=== PATIENT | female | born 1990 | race Caucasian/White ===

== ENCOUNTER 2016-04-28 11:07 | Inpatient (IN) | payer BC ==
[~2016-04-28] VITALS: Ht 172.7 cm; Wt 102.3 kg
[~2016-04-28 11:07] MED LIST: BIRTH CONTROL PILLS; IMODIUM 2MG CAPS2 MG PO
[2016-06-12] VITALS (11 sets, daily range): BP systolic 122–158; BP diastolic 66–87; PULSE 71–100; TEMP 98–98.9
[2016-06-12] MEDS ORDERED: PRILOSEC10 MG PO (19:27)
[2016-06-12] MEDS ORDERED: PRENATAL1 TA7 PO (19:28)
[2016-06-12] MEDS ORDERED: CLARITIN 1010 MG/TAB PO (19:28)
[2016-06-12 20:14] LABS: BASO % 0.3 % (0.0-2.0); EOS # 0.2 (0.0-0.7); GRAN # 6.3 (1.4-6.5); GRAN % 65.6 % (42.2-75.2); LYMPH # 2.2 (1.2-3.4); LYMPH % 23.3 % (20.0-51.0); MEAN CELL VOLUME 86 fl (80.0-100.0); MEAN CORPUSCULAR HGB CONC 34 g/dl (33.0-37.0); MEAN PLATELET VOLUME 9.3 fl (7.4-10.4); MONO # 0.8 (0.1-0.6); MONO % 8.3 % (1.7-9.3); PLATELET COUNT 378 K/mm3 (130-400); RED BLOOD COUNT 3.65 M/mm3 (4.10-5.30); REDCELL DISTRIBUTION WIDTH-CV 12.6 % (11.5-14.5); WHITE BLOOD COUNT 9.5 K/mm3 (4.8-10.8)
[2016-06-12 20:18] LABS: HEMATOCRIT 31.2 % (37.0-47.0); HEMOGLOBIN 10.6 g/dl (12.5-16.0); MEAN CORPUSCULAR HEMOGLOBIN 29 pg (27.0-31.0)
[2016-06-13] VITALS (18 sets, daily range): BP systolic 110–141; BP diastolic 54–84; PULSE 76–112; TEMP 98–98.1
[2016-06-13] MEDS ORDERED: NORCO 325 MG-51 TAB PO (03:39)
[2016-06-13] MEDS ORDERED: MOTRIN 800800 MG/TAB PO (03:39)
[2016-06-14 06:45] VITALS: BP 131/77; PULSE 74; TEMP 97.8
== END 2016-06-14 14:25 | disposition home or self-care (01) | DRG 775 ==
LOC: LDR 06-12 08:36 → OB 06-12 18:52 → LDR 06-12 18:52 → OB 06-13 05:15 → EDSTATUS 06-14 08:30 → LDRO 06-14 11:07 → OB 06-14 14:25
PROVIDERS: Otolaryngology
PROC: 10E0XZZ Delivery of Products of Conception, External Approach (ICD-10-PCS; principal; 2016-06-13)
PROC: 3E0P7GC Introduction of Other Therapeutic Substance into Female Reproductive, Via Natural or Artificial Opening (ICD-10-PCS; 2016-06-13)
DX: O26.843 Uterine size-date discrepancy, third trimester (principal); O69.81X0 Labor and delivery complicated by cord around neck, without compression, not applicable or unspecified; O70.1 Second degree perineal laceration during delivery; Z3A.39 39 weeks gestation of pregnancy; Z37.0 Single live birth
CPT/HCPCS: J2590; J2795; J7120

== ENCOUNTER 2019-03-28 16:30 | Emergency (ER) | payer BC ==
[~2019-03-28] VITALS: Ht 172.7 cm; Wt 75.0 kg
[~2019-03-28 16:30] MED LIST changes: +CLARITIN 1010 MG/TAB PO; +MOTRIN 800800 MG/TAB PO; +NORCO 325 MG-51 TAB PO; +PRENATAL1 TA7 PO; +PRILOSEC10 MG PO
[2019-03-28 18:08] LABS: COLLECTION METHOD CATHETER
[2019-03-28 18:16] LABS: PH 7 (5-8); SQUAMOUS EPITHELIAL 0-2 /hpf; URINE APPEARANCE Clear; URINE BACTERIA None Seen /hpf; URINE BILIRUBIN Negative (NEGATIVE); URINE BLOOD 2+ (NEGATIVE); URINE COLOR Colorless; URINE GLUCOSE Negative (NEGATIVE); URINE KETONE Negative (NEGATIVE); URINE LEUKOCYTE ESTERASE Negative (NEGATIVE); URINE NITRATE Negative (NEGATIVE); URINE PROTEIN(semi-quant) Negative (NEGATIVE); URINE RBC 0-2 /hpf; URINE UROBILINOGEN Negative (NEGATIVE)
[2019-03-28 18:24] LABS: BASO % 0.5 % (0.0-2.0); EOS # 0.1 (0.0-0.7); EOS % 1.3 % (0-4.0); GRAN # 4.5 (1.4-6.5); HEMATOCRIT 37.1 % (37.0-47.0); LYMPH # 2.4 (1.2-3.4); LYMPH % 30.9 % (20.0-51.0); MEAN CELL VOLUME 90 fl (80.0-100.0); MEAN CORPUSCULAR HEMOGLOBIN 32 pg (27.0-31.0); MEAN CORPUSCULAR HGB CONC 35 g/dl (33.0-37.0); MEAN PLATELET VOLUME 8.5 fl (7.4-10.4); MONO # 0.6 (0.1-0.6); MONO % 7.8 % (1.7-9.3); PLATELET COUNT 322 K/mm3 (130-400); RED BLOOD COUNT 4.11 M/mm3 (4.10-5.30); REDCELL DISTRIBUTION WIDTH-CV 11.8 % (11.5-14.5)
[2019-03-28 18:46] VITALS: BP 100/65; PULSE 65; TEMP 98.4
== END 2019-03-28 18:46 | disposition home or self-care (01) ==
LOC: COL.ER 16:30
PROVIDERS: Emergency Medicine
DX: O46.092 Antepartum hemorrhage with other coagulation defect, second trimester (principal); Z90.49 Acquired absence of other specified parts of digestive tract; Z88.5 Allergy status to narcotic agent; Z3A.14 14 weeks gestation of pregnancy

== ENCOUNTER 2019-09-12 15:54 | Inpatient (IN) | payer BC ==
[~2019-09-12] VITALS: Ht 172.7 cm; Wt 89.5 kg
[2019-09-12] VITALS (26 sets, daily range): BP systolic 94–124; BP diastolic 51–70; PULSE 78–123; TEMP 98.5–100.5
[~2019-09-12 15:54] MED LIST changes: +CALCIUM CARBON650 M2; +CRUTCHES MC; +VITAMIN C500 MG PO
--- NOTE | 2019-09-12 16:15 | NUR ---
PATIENT TO LR 3 WITH COMPLAINTS OF CONTRACTIONS. PATIENT CHANGED INTO GOWN, ON EFM, ASSESEMENT COMPLETE, VITALS OBTAINED, SVE 2/80/-2. AT BEDSIDE. PATIENT COMPLAINS OF CONTRACTIONS BUT DENIES BLEEDING OR LEAKING OF FLUID
[2019-09-12 18:16] LABS: BASO # 0.1 (0.0-0.2); BASO % 0.3 % (0.0-2.0); GRAN # 17.5 (1.4-6.5); GRAN % 86.1 % (42.2-75.2); HEMOGLOBIN 12.9 g/dl (12.5-16.0); LYMPH # 1.1 (1.2-3.4); LYMPH % 5.2 % (20.0-51.0); MEAN CELL VOLUME 91 fl (80.0-100.0); MEAN CORPUSCULAR HEMOGLOBIN 32 pg (27.0-31.0); MEAN CORPUSCULAR HGB CONC 35 g/dl (33.0-37.0); MEAN PLATELET VOLUME 9.4 fl (7.4-10.4); MONO # 1.4 (0.1-0.6); PLATELET COUNT 268 K/mm3 (130-400); RED BLOOD COUNT 4.04 M/mm3 (4.10-5.30); REDCELL DISTRIBUTION WIDTH-CV 11.8 % (11.5-14.5)
--- NOTE | 2019-09-12 18:20 | NUR ---
Report received from EROS Preston. Nayeli CHRISTINE on unit for epidural placement. 1826: Nayeli CHRISTINE at bedside for epidural and procedure explained. Pt assisted to edge of bed. Pulse ox applied. Difficulty tracing FHR due to maternal position. 1834: Pt warm to touch. Maternal oral temp 100.5. Will continue to monitor. 1836: Single shot administered by Nayeli CHRISTINE. 1839: Test dose adminstered by Nayeli CHRISTINE. See anesthesia records. 1847: Pt assisted to wedge right position. Plan of care explained and safety precautions explained. Maternal temp 99.7. 1940: Patel catheter inserted without difficulties. UA obtained per orders. SVE 2-3/80/-2, internal exam very warm as well. 2001: called and updated on pts status. See physican notification. 2049: in room reviewing plan of care. All questions and concerns answered by provider at this time. 2101: AROM completed by , large amount of clear fluid noted. SVE 3/70/-2. 2124: Gentamicin IV started per new orders. 2129: Maternal temp 98.7. Peanut ball placed and plan of care explained. Questions answered. Denies needing anything else at this time
[2019-09-12 18:21] LABS: ALBUMIN 3.5 gm/dL (3.5-5.0); BILIRUBIN,TOTAL 0.8 mg/dL (0.0-1.0); CALCIUM 8.9 mg/dL (8.4-10.2); CREATININE, serum 0.49 (0.52-1.25); POTASSIUM 3.3 mmol/L (3.4-5.0); TOTAL PROTEIN 6.8 gm/dL (6.4-8.2)
[2019-09-12 18:25] LABS: HEMATOCRIT 36.9 % (37.0-47.0)
[2019-09-12 18:51] LABS: THYROID STIMULATING HORMONE 1.38 uIU/mL (0.465-4.680)
[2019-09-12 20:09] LABS: COLLECTION METHOD CATHETER
[2019-09-12 20:31] LABS: MUCOUS Present /lpf; PH 8 (5-8); SQUAMOUS EPITHELIAL None Seen /hpf; URINE APPEARANCE Clear; URINE BACTERIA None Seen /hpf; URINE BILIRUBIN Negative (NEGATIVE); URINE BLOOD Negative (NEGATIVE); URINE COLOR Yellow; URINE GLUCOSE Negative (NEGATIVE); URINE KETONE 1+ (NEGATIVE); URINE LEUKOCYTE ESTERASE Negative (NEGATIVE); URINE NITRATE Negative (NEGATIVE); URINE PROTEIN(semi-quant) Negative (NEGATIVE); URINE RBC 0-2 /hpf; URINE UROBILINOGEN Negative (NEGATIVE)
--- NOTE | 2019-09-12 23:10 | NUR ---
SVE /-2, CLEAR FLUID NOTED ON EXAM GLOVE. PT REQUESTING BENADRYL FOR ABDOMINAL ITCHING. PLAN OF CARE EXPLAINED TO PT AND WHO VERBALIZE THEIR UNDERSTANDING. 2314: UPDATED ON PTS STATUS. PROVIDER AT HOME REVIEWING FHR STRIP FROM HOME. NEW ORDERS RECEIVED. SEE PHYSICAN NOTIFICATION. 2320: PITOCIN EXPLAINED AND STARTED AT 2MUS/HR PER ORDERS. QUESTIONS ANSWERED AT THIS TIME
[2019-09-13] VITALS (23 sets, daily range): BP systolic 78–131; BP diastolic 42–72; PULSE 73–123; TEMP 97.7–99.3
--- NOTE | 2019-09-13 00:10 | NUR ---
[id number]: Recurrent early decels noted. 0031: Intermittent late deceleration noted. SVE 4/90/-2, Pt repositioned to right lateral position. Plan of care explained to pt. Difficulty tracing FHR and TOCO, monitors adjusted.
--- NOTE | 2019-09-13 01:00 | NUR ---
BP-78/43. PT SLEEPING. EPHEDRINE EXPLAINED AND ADMINISTERED AT THIS TIME. WILL REASSESS
--- NOTE | 2019-09-13 01:25 | NUR ---
Pt states she is starting to feel a lot of pressure with contractions. Intermittent late decel noted at this time. SVE /0. Bloody show noted to exam gloves. 0131: called and requested at hospital. See physican notification.
--- NOTE | 2019-09-13 02:29 | NUR ---
at pts bedside. SVE complete per provider and ready to push. Pt assisted into footplates and instructed on pushing with contractions. 0231: Pt begins pushing with provider. 0245: Spontaneous vaginal delivery of viable female by . NC x1 noted. Pitocin stopped per orders. Infant's nares bulb suctioned by provider and placed on mothers chest where dried and stimultated by nursery RN. Care of Infant assumed by Behzad Nursery RN. 0253: Spontaneouse delivery of intact placenta by . Pitocin restarted at 333mus/hr per protocol. Bleeding minimal. First degree laceration repaired by . Pericare provided, pads changed and ice pack applied. Pt repositioned in bed and safety precautions explained to pt who verbalizes understanding. See anesthesia records and doctors dication. Call light within reach.
[2019-09-13] MEDS ORDERED: MOTRIN 800800 MG/TAB PO (17:09)
[2019-09-14 06:40] LABS: HEMATOCRIT 37.3 % (37.0-47.0); HEMOGLOBIN 12.5 g/dl (12.5-16.0); MEAN CORPUSCULAR HEMOGLOBIN 32 pg (27.0-31.0); MEAN CORPUSCULAR HGB CONC 34 g/dl (33.0-37.0); MEAN PLATELET VOLUME 9.2 fl (7.4-10.4); PLATELET COUNT 232 K/mm3 (130-400); REDCELL DISTRIBUTION WIDTH-CV 12.3 % (11.5-14.5)
[2019-09-14 06:44] LABS: MEAN CELL VOLUME 96 fl (80.0-100.0)
[2019-09-14 06:56] LABS: BAND 11 % (0-10); EOSINOPHIL 1 % (0-4); LYMPHOCYTE 26 % (20.0-51.0); NEUTROPHILS 60 % (42.0-75.2); PLATELET ESTIMATE NORMAL (NORMAL)
[2019-09-14 07:30] VITALS: BP 112/64; PULSE 77; TEMP 98.5
[2019-09-14 15:34] VITALS: BP 112/67; PULSE 73; TEMP 98.9
[2019-09-14 20:30] VITALS: BP 127/61; PULSE 69; TEMP 98.4
[2019-09-15 07:39] VITALS: BP 126/72; PULSE 78; TEMP 98.1
--- NOTE | 2019-09-15 10:00 | NUR ---
Discharge instructions given, pt verbalizes understanding. No further questions noted, bands matched and hugs tag removed.
== END 2019-09-15 10:15 | disposition home or self-care (01) | DRG 805 ==
LOC: LDRO 15:54 → LDR 15:54 → LDRO 19:19 → LDR 19:20 → OB 09-13 12:00
PROVIDERS: Obstetrics & Gynecology; ADMIT Obstetrics & Gynecology
PROC: 10E0XZZ Delivery of Products of Conception, External Approach (ICD-10-PCS; principal; 2019-09-13)
DX: O99.824 Streptococcus B carrier state complicating childbirth (principal); O41.1230 Chorioamnionitis, third trimester, not applicable or unspecified; Z37.0 Single live birth; O99.62 Diseases of the digestive system complicating childbirth; K21.9 Gastro-esophageal reflux disease without esophagitis; O69.81X0 Labor and delivery complicated by cord around neck, without compression, not applicable or unspecified; O36.8330 Maternal care for abnormalities of the fetal heart rate or rhythm, third trimester, not applicable or unspecified; O70.0 First degree perineal laceration during delivery; Z3A.38 38 weeks gestation of pregnancy
CPT/HCPCS: J0290; J1200; J1580; J2540; J2590; J2795; J7120

== ENCOUNTER 2019-09-16 17:12 | Emergency (ER) | payer BC ==
[~2019-09-16] VITALS: Ht 172.7 cm; Wt 80.9 kg
[2019-09-16 17:30] VITALS: BP 119/79; TEMP 98.5
[2019-09-16 18:41] VITALS: PULSE 74
== END 2019-09-16 18:40 | disposition home or self-care (01) ==
LOC: COL.ER 17:12
DX: S51.811A Laceration without foreign body of right forearm, initial encounter (principal); Z79.1 Long term (current) use of non-steroidal anti-inflammatories (NSAID); W26.8XXA Contact with other sharp object(s), not elsewhere classified, initial encounter; Y92.009 Unspecified place in unspecified non-institutional (private) residence as the place of occurrence of the external cause